=== PATIENT | female | born 1970 | race Caucasian/White ===

== ENCOUNTER 2016-08-27 05:10 | Day surgery (SDC) | payer OTHER ==
[2016-08-24 12:21] LABS: MANUAL DIFF NEEDED? NO
[2016-08-24 12:24] LABS: BASO% 0.7 % (0.0-0.8); EOS% 3.6 % (0.0-10.0); HEMATOCRIT 40.2 % (37.0-47.0); HEMOGLOBIN 13.5 g/dL (12.0-16.0); IMM GRAN# 0.01 X1000 (0.0-0.04); IMM GRAN% 0.1 % (0.0-0.5); LYMPH# 3.64 X1000 (1.2-3.4); LYMPH% 43.2 % (20.5-51.1); MCH 30.9 PG (27-31); MCHC 33.6 g/dL (33-37); MONO# 0.78 X1000 (0.11-0.59); MONO% 9.3 % (1.7-9.3); MPV 9.8 FL (7.4-10.4); NEUT% 43.1 % (42.2-75.2); PLT 242 X1000 (130-400); RBC 4.37 XMIL (4.2-5.4)
--- NOTE | 2016-08-26 13:24 | HISTORY AND PHYSICAL ---
ADMITTING PHYSICIAN: Dr. Jarvis Gurrola. ADMITTING DIAGNOSES: 1. Pelvic pain. 2. Left ovarian cyst. SUMMARY: Amanda Cespedes is a 46-year-old 2, para 1, who is having left-sided pain. She states the pain is worse with sitting and better when she stands. She does have some nausea associated with this. She has had a CAT scan and an ultrasound, which are both showing a 3 cm simple cyst of the left ovary. She is tender in that area on examination. After discussing options, she is being admitted for removal of the ovary. Will attempt laparoscopy. We will do a laparotomy if the laparoscopy is unsuccessful. We have discussed risks of the surgery, including pain, bleeding, infection, bowel or bladder injury, and anesthesia complications. Alternatives to the surgery were also discussed. PAST MEDICAL HISTORY: Patient has had 1 and a vaginal delivery. She has had laparoscopic assisted vaginal hysterectomy. She has history of hypertension. ALLERGIES: None. CURRENT MEDICATIONS: Cymbalta and Bystolic. PHYSICAL EXAMINATION: VITAL SIGNS: Weight 127. Blood pressure 132/70. CARDIOVASCULAR: Regular rate and rhythm, without murmurs, rubs, or gallops. PULMONARY: Clear. BREASTS: No masses. ABDOMEN: Tender, without rebound, rigidity, or guarding. Bowel sounds are present and normal. PELVIC: Normal external genitalia. There is tenderness on the left side. EXTREMITIES: No clubbing, edema, or cyanosis. IMPRESSIONS: 1. Pelvic pain. 2. Left ovarian cyst. PLAN: We will proceed with removal of the left adnexa. Again, risks, benefits, possible complications, and reasonable expectations of surgery have been discussed in detail.
[2016-08-27] MEDS ORDERED: LR 1,000 ML ONE ×2 (05:14→06:32)
[2016-08-27] MEDS ORDERED: VERSED ONE (06:17)
[2016-08-27] MEDS ORDERED: EPHEDRINE ONE (06:17)
[2016-08-27] MEDS ORDERED: FENTANYL ONE (06:17)
[2016-08-27] MEDS ORDERED: DIPRIVAN 1% ONE (06:17)
[2016-08-27] MEDS ORDERED: SENSORCAINE 0.25%/EPI 1:200,000 ONE (06:32)
[2016-08-27] MEDS ORDERED: PEPCID ONE (06:35)
[2016-08-27] MEDS ORDERED: BICITRA ONE (06:35)
[2016-08-27] MEDS ORDERED: ZOFRAN IV ONE (07:24)
[2016-08-27] MEDS ORDERED: HYDROXYZINE IM PRN (07:24)
[2016-08-27] MEDS ORDERED: TORADOL IV ONE (07:24)
[2016-08-27] MEDS ORDERED: NORCO-5 PO PRN (07:24)
[2016-08-27] MEDS ORDERED: MORPHINE ONE ×2 (07:30→07:48)
[2016-08-27] MEDS ORDERED: PRILOSEC PO PRN (08:41)
[2016-08-27] MEDS ORDERED: COREG PO SCH (09:00)
[2016-08-27] MEDS ORDERED: CYMBALTA PO SCH (09:00)
[2016-08-27] MEDS ORDERED: PATIENT'S OWN MED PO SCH (09:00)
--- NOTE | 2016-08-27 10:05 | OPERATIVE NOTE ---
PROCEDURE DATE: 08/27/2016 SURGEON: Jarvis Gurrola MD COREMAKER BENCH: Jason Diaz MD ANESTHESIA: General endotracheal. OPERATION PERFORMED: 1. Laparoscopic left salpingo-oophorectomy. 2. Lysis of pelvic adhesions. PREOPERATIVE DIAGNOSES: 1. Pelvic pain. 2. Left ovarian cyst by ultrasound. POSTOPERATIVE DIAGNOSES: 1. Pelvic pain. 2. Left ovarian cyst. 3. Pelvic adhesions. FINDINGS: At laparoscopy, some adhesions were noted on the left side. The left ovary had a small cyst. The right ovary was grossly normal. DESCRIPTION OF PROCEDURE: The patient was taken back to the operating room and, after general endotracheal anesthesia, was placed in the dorsal lithotomy position. The vagina, perineum, and abdomen were prepped and draped in the usual fashion. A catheter was placed in the urinary bladder. A periumbilical incision was made. Through this incision, the Veress needle was inserted. A pneumoperitoneum was created. A laparoscopic trocar was then introduced without difficulty. Initial laparoscopic examination revealed no apparent blood vessel or bowel injury. We then placed a 5 mm trocar on the patient's right side and a 10 mm on the left side. The ovary was grasped and displaced to the midline. Using the 5 mm LigaSure device, left oophorectomy was performed without difficulty. Adhesions were then taken down without difficulty. The ovary was placed in an EndoCatch bag and brought out through the 10 mm left-sided port. We dropped the pressure and complete hemostasis was noted in the areas of dissection and removal of the ovary. All instruments were removed at this time. The pneumoperitoneum was relieved. The incision was oversewn using Vicryl suture and infiltrated with 0.25% Marcaine. Blood loss was approximately 5 mL. There no complications. The patient was extubated and went to the recovery room in stable condition. She will be discharged to ambulatory surgery later today and I will see her back in the office in 1 week. Routine discharge instructions, activity limitations, and precautions were discussed in detail. She was given prescriptions for Tendoy 10 and Motrin 800 mg for postoperative pain.
[2016-08-27 11:25] VITALS: BP 109/46
[2016-08-27] MEDS ORDERED: DECADRON ONE (17:06)
[2016-08-27] MEDS ORDERED: XYLOCAINE-MPF 2% ONE (17:06)
[2016-08-27] MEDS ORDERED: QUELICIN (DOSE) ONE (17:06)
[2016-08-27] MEDS ORDERED: ZEMURON ONE (17:06)
[2016-08-27] MEDS ORDERED: NEOSTIGMINE ONE (17:06)
[2016-08-27] MEDS ORDERED: ZOFRAN ONE (17:06)
[2016-08-27] MEDS ORDERED: TORADOL ONE (17:06)
[2016-08-27] MEDS ORDERED: ROBINUL ONE (17:06)
== END 2016-08-27 11:40 | disposition home or self-care (01) ==
LOC: P.OR 05:10 → P.WC 05:11 → P.OR 11:40
PROVIDERS: ATTEND Obstetrics & Gynecology
DX: N80.3 Endometriosis of pelvic peritoneum (principal); N83.12 Corpus luteum cyst of left ovary; N73.6 Female pelvic peritoneal adhesions (postinfective)
CPT/HCPCS: 36415; 85025; J0330; J1100; J1885; J2250; J2270; J2405; J3010; J7120; J2710; S0028